=== PATIENT | female | born 1955 | race Caucasian/White ===

== ENCOUNTER 2025-01-17 11:40 | Emergency (ER) | payer OTHER ==
[~2025-01-17] VITALS: Ht 157.5 cm; Wt 99.8 kg
[2025-01-17] MEDS ORDERED: TOPROL XL25 M1 (12:07)
[2025-01-17] MEDS ORDERED: ELIQUIS2.5 MG (12:07)
[2025-01-17] MEDS ORDERED: POVIDONE-IODINE SCRUB 118 ML BOTT TOP ONE (13:45)
[2025-01-17] MEDS ORDERED: LIDOCAINE HCL 1%/EPINEPHRINE 10 ML VIAL IJ ONE (13:45)
== END 2025-01-17 17:31 | disposition home or self-care (01) ==
LOC: ER 11:40
DX: S01.81XA Laceration without foreign body of other part of head, initial encounter (principal); W18.39XA Other fall on same level, initial encounter; Y93.89 Activity, other specified; Y92.89 Other specified places as the place of occurrence of the external cause; Y99.9 Unspecified external cause status